=== PATIENT | male | born 1990 | race Caucasian/White ===

== ENCOUNTER 2017-02-16 21:31 | Emergency (ER) | payer OTHER ==
[2017-02-16 21:48] VITALS: BP 143/94; PULSE 60; RESP 20; TEMP 98.3
[2017-02-16] MEDS ORDERED: AMOXICILLIN 500MG STARTER PACK 3 CAP BTL PO STA (22:22)
--- NOTE | 2017-02-16 22:25 | ED ---
Pediatric HENT HPI - General Chief Complaint: ENT Stated Complaint: L ear pain Time Seen by Provider: 02/16/17 21:45 Source: patient, RN notes reviewed, old records reviewed Mode of arrival: ambulatory Limitations: no limitations - History of Present Illness Initial Comments: Pt is a 26 year old male with CC of left ear pain for one week. Patient reports that he felt a popping and fullness in the ear, denies taking motrin or tylenol. Patient reports decreased hearing in left ear, and states that his neck feels tender and swollen. Patient denies any sore throat, and denies known fever. - Related Data Previous Rx's Medication Instructions Recorded Amoxicillin 500 mg PO Q8H #21 capsule 02/16/17 Ciprofloxacin Ophth Soln [Ciloxan 5 drops LEFT EAR BID #1 bottle 02/16/17 0.3% Ophth Soln] Allergies Allergy/AdvReac Type Severity Reaction Status Date / Time No Known Allergies Allergy Verified 02/16/17 21:46 Review of Systems ROS Statement: Those systems with pertinent positive or pertinent negative responses have been documented in the HPI. ROS Other: All systems not noted in ROS Statement are negative. Constitutional: Denies: chills Eyes: Denies: eye pain, vision change ENT: Reports: ear pain, hearing loss. Denies: throat pain, dental pain, epistaxis Respiratory: Denies: cough, dyspnea Cardiovascular: Denies: chest pain, palpitations, dyspnea on exertion Endocrine: Denies: fatigue Gastrointestinal: Denies: abdominal pain, nausea Genitourinary: Denies: urgency, dysuria Musculoskeletal: Denies: back pain Skin: Denies: rash, lesions Neurological: Denies: headache, weakness Psychiatric: Denies: anxiety, depression Hematological/Lymphatic: Denies: easy bleeding Past Medical History Past Medical History: No Reported History History of Any Multi-Drug Resistant Organisms: None Reported Past Surgical History: No Surgical Hx Reported Past Psychological History: No Psychological Hx Reported Smoking Status: Current every day smoker Past Alcohol Use History: Occasional Past Drug Use History: None Reported General Exam - General Exam Comments Initial Comments: This is a 26 year old male, no distress. Limitations: no limitations General appearance: alert, in no apparent distress Head exam: Present: atraumatic, normocephalic, normal inspection Eye exam: Present: normal appearance, PERRL, EOMI. Absent: scleral icterus, conjunctival injection, periorbital swelling ENT exam: Present: normal oropharynx, mucous membranes moist, other (tender over left tragus). Absent: normal exam, TM's normal bilaterally (left TM erythema and effusion) Neck exam: Present: normal inspection. Absent: tenderness, meningismus, lymphadenopathy Respiratory exam: Present: normal lung sounds bilaterally. Absent: respiratory distress, wheezes, rales, rhonchi, stridor Cardiovascular Exam: Present: regular rate, normal rhythm, normal heart sounds. Absent: systolic murmur, diastolic murmur, rubs, gallop, clicks GI/Abdominal exam: Present: soft, normal bowel sounds. Absent: distended, tenderness, guarding, rebound, rigid Neurological exam: Present: alert, oriented X3, CN II-XII intact Psychiatric exam: Present: normal affect, normal mood Skin exam: Present: warm, dry, intact, normal color. Absent: rash Course Vital Signs 02/16/17 21:46 Temperature 98.3 F Pulse Rate 60 Respiratory 20 Rate Blood Pressure 143/94 O2 Sat by Pulse 100 Oximetry Medical Decision Making - Medical Decision Making Pt is a 26 year old male with CC of left ear pain for one week. Patient reports that he felt a popping and fullness in the ear, denies taking motrin or tylenol. Patient reports decreased hearing in left ear, and states that his neck feels tender and swollen. Patient has erythematous left TM with effusion, patient is tender over tragus. Patient placed on amoxil for otitis media. Discussed taking decongestant medication.Return parameters discussed. Disposition Clinical Impression: Left otitis media Disposition: HOME SELF-CARE Condition: Good Instructions: Otitis Media (ED) Additional Instructions: patient advised to brain picker [id number] decongestant medicine such as Tylenol Cold and sinus. Take antibiotic as prescribed. Also apply the antibiotic drops twice a day. Return to the emergency department if any alarming signs or symptoms occur. Prescriptions: Amoxicillin 500 mg PO Q8H #21 capsule Ciprofloxacin Ophth Soln [Ciloxan 0.3% Ophth Soln] 5 drops LEFT EAR BID #1 bottle Referrals: None,Stated [Primary Care Provider] - 1-2 days Time of Disposition: 22:23
--- NOTE | 2017-02-18 02:12 | CDI ---
Dear Fouzia Sarmiento PA-C: Please do addendum History of Present Illness, Physical Examination, and Medical Decision Making. Thank you, Shanta Escobar, [employer]. If you have any questions, please contact [facility] at [phone]. [facility]
== END 2017-02-16 22:30 | disposition home or self-care (01) ==
LOC: EC 21:31
DX: H66.92 Otitis media, unspecified, left ear (principal); F17.200 Nicotine dependence, unspecified, uncomplicated
CPT/HCPCS: 99283

== ENCOUNTER 2017-08-10 19:19 | Emergency (ER) | payer OTHER ==
[2017-08-10 19:49] VITALS: RESP 18
--- NOTE | 2017-08-10 20:15 | ED ---
URI HPI - General Chief Complaint: Upper Respiratory Infection Stated Complaint: flu/burn on arm Time Seen by Provider: 08/10/17 19:52 Source: patient, RN notes reviewed Mode of arrival: ambulatory Limitations: no limitations - History of Present Illness Initial Comments: This is a 26-year-old male who states he has a cough of green phlegm no overt fevers chills or sweats he does believe he may have contracted the fluids his son was diagnosed with a week ago. No earache sore throat or rhinorrhea at this time no other symptoms to report. MD Complaint: cough - Related Data Previous Rx's Medication Instructions Recorded Oseltamivir [Tamiflu] 75 mg PO Q12HR #14 cap 08/10/17 Allergies Allergy/AdvReac Type Severity Reaction Status Date / Time No Known Allergies Allergy Verified 08/10/17 20:34 Review of Systems ROS Statement: Those systems with pertinent positive or pertinent negative responses have been documented in the HPI. ROS Other: All systems not noted in ROS Statement are negative. Past Medical History Past Medical History: No Reported History History of Any Multi-Drug Resistant Organisms: None Reported Past Surgical History: No Surgical Hx Reported Past Psychological History: No Psychological Hx Reported Smoking Status: Current every day smoker Past Alcohol Use History: Occasional Past Drug Use History: None Reported General Exam - General Exam Comments Initial Comments: This is a well-developed well-nourished awake alert oriented 3 male Limitations: no limitations General appearance: alert, in no apparent distress Head exam: Present: atraumatic, normocephalic, normal inspection Eye exam: Present: normal appearance, PERRL, EOMI. Absent: scleral icterus, conjunctival injection, periorbital swelling ENT exam: Present: normal exam, mucous membranes moist, other (Boggy nasal mucosa) Neck exam: Present: normal inspection. Absent: tenderness, meningismus, lymphadenopathy Respiratory exam: Present: normal lung sounds bilaterally. Absent: respiratory distress, wheezes, rales, rhonchi, stridor Cardiovascular Exam: Present: regular rate, normal rhythm, normal heart sounds. Absent: systolic murmur, diastolic murmur, rubs, gallop, clicks GI/Abdominal exam: Present: soft, normal bowel sounds. Absent: distended, tenderness, guarding, rebound, rigid Extremities exam: Present: normal inspection, full ROM, normal capillary refill. Absent: tenderness, pedal edema, joint swelling, calf tenderness Back exam: Present: normal inspection Neurological exam: Present: alert, oriented X3, CN II-XII intact Psychiatric exam: Present: normal affect, normal mood Skin exam: Present: warm, dry, intact, normal color. Absent: rash Course Vital Signs 08/10/17 19:46 Temperature 99.1 F Pulse Rate 73 Respiratory 18 Rate Blood Pressure 127/70 O2 Sat by Pulse 99 Oximetry Medical Decision Making - Medical Decision Making I did discuss findings with patient family the patient is exposed to influenza he has what appears be the beginning symptoms so his initial test was negative he'll be placed on for prophylaxis. He does have a small infant at home. - Lab Data Lab Results 08/10/17 Range/Units 20:30 Influenza Type A RNA Not Detected (Not Detectd) Influenza Type B (PCR) Not Detected (Not Detectd) - Radiology Data Radiology results: report reviewed (I did review the imaging and reports no acute findings.), image reviewed Disposition Clinical Impression: Upper respiratory infection, Exposure to influenza Disposition: HOME SELF-CARE Condition: Good Instructions: Upper Respiratory Infection (ED), Influenza (ED) Prescriptions: Oseltamivir [Tamiflu] 75 mg PO Q12HR #14 cap Referrals: None,Stated [Primary Care Provider] - 1-2 days
--- NOTE | 2017-08-10 20:49 | XR ---
EXAMINATION: XR chest 2V DATE AND TIME: 08/10/2017 8:23 PM ORDERING PROVIDER: Christ Deutsch MD CLINICAL INDICATION: cough TECHNIQUE: PA and lateral COMPARISON: None. DESCRIPTION: The lungs are clear. The pleural spaces are negative. The cardiac silhouette is not enla rged. The mediastinal and pleural silhouettes are unremarkable. The skeletal structures are intact wi thout focal findings. The soft tissues are unremarkable. IMPRESSION: NO ACUTE PROCESS.
[2017-08-10] MEDS: OSELTAMIVIR 75 MG CAP PO STA ×2 (22:02→22:05)
[2017-08-10] MEDS ORDERED: OSELTAMIVIR 75 MG CAP PO STA (22:04)
[2017-08-10 22:10] VITALS: BP 118/60; PULSE 68; TEMP 98.4
== END 2017-08-10 22:08 | disposition home or self-care (01) ==
LOC: EC 19:19
DX: J06.9 Acute upper respiratory infection, unspecified (principal); Z20.828 Contact with and (suspected) exposure to other viral communicable diseases; F17.200 Nicotine dependence, unspecified, uncomplicated; Z53.8 Procedure and treatment not carried out for other reasons
CPT/HCPCS: 71046; 87502; 99283

== ENCOUNTER 2021-03-07 21:47 | Emergency (ER) | payer OTHER ==
[2021-03-07] MEDS ORDERED: ACET/COD 300 MG/30 MG STARTER PACK 6 TAB BTL PO STA (22:12)
[2021-03-07] MEDS ORDERED: AMOXIC-POT CLAV 875MG STARTER PACK 2 TAB BTL PO STA (22:12)
[2021-03-07] MEDS ORDERED: KETOROLAC 15 MG/ML 1 ML VIAL IM STA (22:13)
--- NOTE | 2021-03-07 22:14 | ED ---
General Adult HPI - General Chief complaint: Dental/Oral Stated complaint: Dental Pain Time Seen by Provider: 03/07/21 22:04 Source: patient Mode of arrival: ambulatory Limitations: no limitations - History of Present Illness Initial comments: 30-year-old male patient presents the emergency department today for evaluation of left upper until pain and facial swelling. Patient states symptoms started about 5 days ago, swelling started today. Denies any trismus or difficulty swallowing. Denies any fever or chills. Denies nausea or vomiting. States his been taken ibuprofen without relief. They have been calling around to multiple dentists and unable to get him in anywhere. They're calling daily to the [facility] for an appointment. - Related Data Previous Rx's Medication Instructions Recorded Oseltamivir [Tamiflu] 75 mg PO Q12HR #14 cap 08/10/17 Amoxic-Pot Clav 875-125Mg 1 tab PO Q12HR #20 tablet 03/07/21 [Augmentin 875-125] Ibuprofen [Motrin] 600 mg PO Q8HR PRN #30 tab 03/07/21 Allergies Allergy/AdvReac Type Severity Reaction Status Date / Time No Known Allergies Allergy Verified 03/07/21 21:59 Review of Systems ROS Statement: Those systems with pertinent positive or pertinent negative responses have been documented in the HPI. ROS Other: All systems not noted in ROS Statement are negative. Past Medical History Past Medical History: No Reported History History of Any Multi-Drug Resistant Organisms: None Reported Past Surgical History: No Surgical Hx Reported Past Psychological History: No Psychological Hx Reported Smoking Status: Current some day smoker Past Alcohol Use History: Occasional Past Drug Use History: None Reported General Exam Limitations: no limitations General appearance: alert, in no apparent distress, other (This is a well- developed, well-nourished adult male patient in no acute distress. Vital signs upon presentation are temperature 100.1F, pulse 89, respirations 19, blood pressure 135/75, pulse ox 97% on room air.) Eye exam: Present: normal appearance, PERRL, EOMI. Absent: scleral icterus, conjunctival injection, periorbital swelling ENT exam: Present: normal oropharynx, mucous membranes moist, other (There are multiple dental caries noted to the left upper dentition. There is no evidence for drainable abscess.) Cardiovascular Exam: Present: regular rate, normal rhythm, normal heart sounds. Absent: systolic murmur, diastolic murmur, rubs, gallop, clicks GI/Abdominal exam: Present: soft, normal bowel sounds. Absent: distended, tenderness, guarding, rebound, rigid Neurological exam: Present: alert, oriented X3, CN II-XII intact Psychiatric exam: Present: normal affect, normal mood Skin exam: Present: warm, dry, intact, normal color. Absent: rash Course Vital Signs 03/07/21 03/07/21 21:56 22:22 Temperature 100.1 F H 98 F Pulse Rate 89 79 Respiratory 19 18 Rate Blood Pressure 135/75 132/78 O2 Sat by Pulse 97 97 Oximetry Medical Decision Making - Medical Decision Making 30-year-old male patient presents to the emergency department today for evaluation of left upper dental pain and facial swelling. No evidence for drainable abscess on exam. He does have mildly elevated temperature 100.1. He was started on antibiotics here. Given pain medication. He was also given recommendation to call the [facility] as a do except a wide variety of insurances. He is instructed to continue colonic [facility] daily for an emergency appointment. Return parameters were discussed in detail. He verbalizes understanding and agrees with this plan. My attending is Dr. Chi. Disposition Clinical Impression: Dental abscess Disposition: HOME SELF-CARE Condition: Good Instructions (If sedation given, give patient instructions): Dental Abscess (ED) Additional Instructions: Take edications as directed. Complete antibiotic prescription in full. Follow-up with dentistry as soon as possible. Return to the emergency department for any new, worsening, or concerning symptoms. Prescriptions: Amoxic-Pot Clav 875-125Mg [Augmentin 875-125] 1 tab PO Q12HR #20 tablet Ibuprofen [Motrin] 600 mg PO Q8HR PRN #30 tab PRN Reason: Pain Is patient prescribed a controlled substance at d/c from ED?: No Referrals: None,Stated [Primary Care Provider] - 1-2 days Time of Disposition: 22:14
[2021-03-07 22:24] VITALS: BP 132/78; PULSE 79; RESP 18; TEMP 98
== END 2021-03-07 22:24 | disposition home or self-care (01) ==
LOC: EC 21:47
DX: K04.7 Periapical abscess without sinus (principal); F17.200 Nicotine dependence, unspecified, uncomplicated
CPT/HCPCS: 99282; J1885

== ENCOUNTER 2021-10-19 13:04 | Emergency (ER) | payer OTHER ==
[2021-10-19 13:13] VITALS: TEMP 98.5
[2021-10-19] MEDS ORDERED: PROPARACAINE 0.5% OPHTH DROPS 15 ML BTL LEFT EYE STA (13:16)
[2021-10-19] MEDS ORDERED: FLUORESCEIN STRIPS 1 MG STRIP LEFT EYE ONE (13:16)
[2021-10-19] MEDS ORDERED: TOBRAMYCIN 0.3% OPHTH DROPS 5 ML BTL LEFT EYE STA (13:32)
--- NOTE | 2021-10-19 13:34 | ED ---
Eye Problem HPI - General Chief complaint: Eye Problems Stated complaint: Left Eye pain Time Seen by Provider: 10/19/21 13:16 Source: patient, RN notes reviewed Mode of arrival: ambulatory Limitations: no limitations - History of Present Illness Initial comments: 31-year-old male presents emergency Department with chief complaint of left eye foreign body, left eye irritation. Patient states he felt like something has been his left eye for 1 week. He states he has no visual disturbance states it is sensitive to light, feels like something is in his left eye states that there is irritation, tearing of his eye. His tetanus is up-to-date patient offers no complaints. - Related Data Previous Rx's Medication Instructions Recorded Oseltamivir [Tamiflu] 75 mg PO Q12HR #14 cap 08/10/17 Amoxic-Pot Clav 875-125Mg 1 tab PO Q12HR #20 tablet 03/07/21 [Augmentin 875-125] Ibuprofen [Motrin] 600 mg PO Q8HR PRN #30 tab 03/07/21 Allergies Allergy/AdvReac Type Severity Reaction Status Date / Time No Known Allergies Allergy Verified 10/19/21 13:13 Review of Systems ROS Statement: Those systems with pertinent positive or pertinent negative responses have been documented in the HPI. ROS Other: All systems not noted in ROS Statement are negative. Past Medical History Past Medical History: No Reported History History of Any Multi-Drug Resistant Organisms: None Reported Past Surgical History: No Surgical Hx Reported Past Psychological History: No Psychological Hx Reported Smoking Status: Current some day smoker Past Alcohol Use History: Occasional Past Drug Use History: None Reported General Exam Limitations: no limitations General appearance: alert, in no apparent distress Head exam: Present: atraumatic, normocephalic, normal inspection Eye exam: Present: PERRL, EOMI, conjunctival injection (Left), other (Foreign- body central region left eye, patient has fluorescein uptake with Wood lamp, patient for relief of symptoms after proparacaine drops). Absent: normal appearance, scleral icterus, periorbital swelling ENT exam: Present: normal exam, normal oropharynx, mucous membranes moist, TM's normal bilaterally Neck exam: Present: normal inspection. Absent: tenderness, meningismus, lymphadenopathy Respiratory exam: Present: normal lung sounds bilaterally. Absent: respiratory distress, wheezes, rales, rhonchi, stridor Cardiovascular Exam: Present: regular rate, normal rhythm, normal heart sounds. Absent: systolic murmur, diastolic murmur, rubs, gallop, clicks Course Vital Signs 10/19/21 13:10 Temperature 98.5 F Pulse Rate 80 Respiratory 20 Rate Blood Pressure 118/67 O2 Sat by Pulse 99 Oximetry Procedures - Forgein Body Removal Eye Site: Left Anesthetic Used: Proparacaine Eye Exam Technique: Zepeda Lamp Foreign Body Suspected: Other Forgein Body Removal Technique: Cotton Swab Remaining Debris: No Patient Tolerated: no complications Medical Decision Making - Medical Decision Making Foreign body was removed from left eye, there is a corneal defect patient was placed on Tobrex eyedrops patient will follow-up with on-call ophthalmology return parameters were discussed. Disposition Clinical Impression: Foreign body in cornea, left eye, initial encounter Disposition: HOME SELF-CARE Condition: Stable Instructions (If sedation given, give patient instructions): Corneal Abrasion (ED), Eye Foreign Body (ED) Additional Instructions: Use Tobrex eyedrops 1 drop every 4 hours for 5 days.Please return to the Emergency Department if symptoms worsen or any other concerns. Is patient prescribed a controlled substance at d/c from ED?: No Referrals: None,Stated [Primary Care Provider] - 1-2 days Franck Nobles MD [STAFF PHYSICIAN] - 1-2 days Time of Disposition: 13:34
[2021-10-19 13:51] VITALS: BP 113/74; PULSE 73; RESP 18
== END 2021-10-19 14:10 | disposition home or self-care (01) ==
LOC: EC 13:04
DX: T15.02XA Foreign body in cornea, left eye, initial encounter (principal); F17.200 Nicotine dependence, unspecified, uncomplicated
CPT/HCPCS: 65220; 99283

== ENCOUNTER 2022-01-25 12:17 | Emergency (ER) | payer OTHER ==
[2022-01-25 12:36] VITALS: BP 120/65; PULSE 64; RESP 20; TEMP 98
--- NOTE | 2022-01-25 12:55 | ED ---
General Adult HPI - General Chief complaint: Dental/Oral Stated complaint: dental pain Time Seen by Provider: 01/25/22 12:37 Source: patient Mode of arrival: ambulatory Limitations: no limitations - History of Present Illness Initial comments: Dictation was produced using [employer] dictation software. please excuse any grammatical, word or spelling errors. Chief Complaint: 31-year-old male presents to the emergency department for dental pain History of Present Illness: Patient is a 31-year-old male with no significant comorbidities. Presents emergency Department with dental pain. Patient states that #17 hurts. It's been hurting for 7 days. Patient is a history of poor dentition and dental extractions in the past. Denies any fever or facial pain. Patient had his significant other called multiple dental offices and appointments have been delayed for up to 3 weeks. Patient spent on antibiotics in the past for dental pain. The ROS documented in this emergency department record has been reviewed and confirmed by me. Those systems with pertinent positive or negative responses have been documented in the HPI. All other systems are other negative and/or noncontributory. PHYSICAL EXAM: General Impression: Alert and oriented x3, not in acute distress HEENT: Normocephalic atraumatic, extra-ocular movements intact, pupils equal and reactive to light bilaterally, mucous membranes moist. Oral exam: Poor dentition, no drainable abscess in the lower left mandibular gingiva Cardiovascular: Heart regular rate and rhythm Chest: Able to complete full sentences, no retractions, no tachypnea Musculoskeletal: Pulses present and equal in all extremities, no peripheral edema Motor: no focal deficits noted Neurological: CN II-XII grossly intact, no focal motor or sensory deficits noted Skin: Intact with no visualized rashes Psych: Normal affect and mood ED course: 31-year-old male presents to the emergency department for dental pain. Vital signs upon arrival are within acceptable limits. Patient in no acute distress. Patient given antibiotics. Advised to follow up with Dentist. Patient given prescription for antibiotics and analgesics. - Related Data Previous Rx's Medication Instructions Recorded Oseltamivir [Tamiflu] 75 mg PO Q12HR #14 cap 08/10/17 Amoxic-Pot Clav 875-125Mg 1 tab PO Q12HR #20 tablet 03/07/21 [Augmentin 875-125] Ibuprofen [Motrin] 600 mg PO Q8HR PRN #30 tab 03/07/21 Amoxic-Pot Clav 875-125Mg 1 tab PO BID 21 Days #42 tab 01/25/22 [Augmentin 875-125] HYDROcodone/APAP 5-325MG [Riner 1 tab PO Q6HR PRN 3 Days #12 tab 01/25/22 5-325] Allergies Allergy/AdvReac Type Severity Reaction Status Date / Time No Known Allergies Allergy Verified 01/25/22 12:36 Review of Systems ROS Statement: Those systems with pertinent positive or pertinent negative responses have been documented in the HPI. ROS Other: All systems not noted in ROS Statement are negative. Past Medical History Past Medical History: No Reported History History of Any Multi-Drug Resistant Organisms: None Reported Past Surgical History: No Surgical Hx Reported Past Psychological History: No Psychological Hx Reported Smoking Status: Current every day smoker Past Alcohol Use History: Occasional Past Drug Use History: Marijuana General Exam Limitations: no limitations Course Vital Signs 01/25/22 12:35 Temperature 98 F Pulse Rate 64 Respiratory 20 Rate Blood Pressure 120/65 O2 Sat by Pulse 99 Oximetry Disposition Clinical Impression: Pain, dental Disposition: HOME SELF-CARE Condition: Fair Instructions (If sedation given, give patient instructions): Toothache (ED) Prescriptions: Amoxic-Pot Clav 875-125Mg [Augmentin 875-125] 1 tab PO BID 21 Days #42 tab HYDROcodone/APAP 5-325MG [Riner 5-325] 1 tab PO Q6HR PRN 3 Days #12 tab PRN Reason: Severe Pain Is patient prescribed a controlled substance at d/c from ED?: Yes If prescribed controlled substance>3 days was MAPS reviewed?: Prescribed <3 Days Referrals: None,Stated [Primary Care Provider] - 1-2 days Time of Disposition: 12:55
== END 2022-01-25 13:47 | disposition home or self-care (01) ==
LOC: EC 12:17
DX: K08.89 Other specified disorders of teeth and supporting structures (principal); F17.200 Nicotine dependence, unspecified, uncomplicated
CPT/HCPCS: 99282

== ENCOUNTER 2024-04-21 08:44 | Emergency (ER) | payer SELFPAY ==
[2024-04-21] MEDS: FLUORESCEIN STRIPS 1 MG STRIP RIGHT EYE ONE (09:22)
[2024-04-21] MEDS: PROPARACAINE 0.5% OPHTH DROPS 15 ML BTL RIGHT EYE STA (09:22)
--- NOTE | 2024-04-21 09:45 | ED ---
ENT HPI - General Chief complaint: ENT Stated complaint: object in rt eye Time Seen by Provider: 04/21/24 08:59 Source: patient, RN notes reviewed Mode of arrival: ambulatory Limitations: no limitations - History of Present Illness Initial comments: 33-year-old male presents to the emergency department with chief complaint of foreign body in right eye. He states that he was working on a truck and a piece of rust fell off into his eye. He reports pain and tearing but denies vision changes or floaters. Denies other trauma to face or eye. States that his last tetanus shot was 7 years ago. Denies other complaints - Related Data Previous Rx's Medication Instructions Recorded Oseltamivir [Tamiflu] 75 mg PO Q12HR #14 cap 08/10/17 Amoxic-Pot Clav 875-125Mg 1 tab PO Q12HR #20 tablet 03/07/21 [Augmentin 875-125] Ibuprofen [Motrin] 600 mg PO Q8HR PRN #30 tab 03/07/21 Amoxic-Pot Clav 875-125Mg 1 tab PO BID 21 Days #42 tab 01/25/22 [Augmentin 875-125] HYDROcodone/APAP 5-325MG [[place] 1 tab PO Q6HR PRN 3 Days #12 tab 01/25/22 5-325] Allergies Allergy/AdvReac Type Severity Reaction Status Date / Time No Known Allergies Allergy Verified 04/21/24 09:14 Review of Systems ROS Statement: Those systems with pertinent positive or pertinent negative responses have been documented in the HPI. ROS Other: All systems not noted in ROS Statement are negative. Past Medical History Past Medical History: No Reported History History of Any Multi-Drug Resistant Organisms: None Reported Past Surgical History: No Surgical Hx Reported Past Psychological History: No Psychological Hx Reported Smoking Status: Current every day smoker Past Alcohol Use History: Occasional Past Drug Use History: Marijuana General Exam Limitations: no limitations General appearance: alert, in no apparent distress Head exam: Present: atraumatic, normocephalic, normal inspection Eye exam: Present: PERRL, EOMI. Absent: normal appearance (Foreign body 4 o'clock position), scleral icterus, conjunctival injection, periorbital swelling Expanded Pupils: Regular, Round: Bilateral, Reactive: Bilateral Sclera/Conjunctival: Injection: Right, Foreign Body: Right (metal with rust 4 o'clock position) Visual acuity (R) = 20/: 20 Visual acuity (L) = 20/: 20 With correction: No ENT exam: Present: normal exam, mucous membranes moist Neck exam: Present: normal inspection. Absent: tenderness, meningismus, lymphadenopathy Respiratory exam: Present: normal lung sounds bilaterally. Absent: respiratory distress, wheezes, rales, rhonchi, stridor Cardiovascular Exam: Present: regular rate, normal rhythm, normal heart sounds. Absent: systolic murmur, diastolic murmur, rubs, gallop, clicks GI/Abdominal exam: Present: soft, normal bowel sounds. Absent: distended, tenderness, guarding, rebound, rigid Extremities exam: Present: normal inspection, full ROM, normal capillary refill. Absent: tenderness, pedal edema, joint swelling, calf tenderness Back exam: Present: normal inspection Neurological exam: Present: alert, oriented X3, CN II-XII intact Psychiatric exam: Present: normal affect, normal mood Skin exam: Present: warm, dry, intact, normal color. Absent: rash Course Vital Signs 04/21/24 04/21/24 09:12 09:56 Temperature 98.2 F 98.1 F Pulse Rate 67 68 Respiratory 20 18 Rate Blood Pressure 116/75 114/81 O2 Sat by Pulse 99 99 Oximetry Procedures - Forgein Body Removal Eye Site: Right Anesthetic Used: Proparacaine Eye Exam Technique: Zepeda Lamp, Fluorescein Foreign Body Suspected: Metal Forgein Body Removal Technique: Cotton Swab, Irrigation, [place] Remaining Debris: No Patient Tolerated: no complications Medical Decision Making - Medical Decision Making Was pt. sent in by a medical professional or institution (MARYANNE Armendariz, EXTENSION CLERK, urgent care, hospital, or residential...) When possible be specific @ -No Did you speak to anyone other than the patient for history (EMS, parent, family, police, friend...)? What history was obtained from this source @ -No Did you review nursing and triage notes (agree or disagree)? Why? @ -I reviewed and agree with nursing and triage notes Were old charts reviewed (outside hosp., previous admission, EMS record, old EKG, old radiological studies, urgent care reports/EKG's, residential records)? Report findings @ -No old charts were reviewed Differential Diagnosis (chest pain, altered mental status, abdominal pain women, abdominal pain men, vaginal bleeding, weakness, fever, dyspnea, syncope, headache, dizziness, GI bleed, back pain, seizure, CVA, palpatations, mental health, musculoskeletal)? @ -Corneal foreign body, corneal abrasion, conjunctivitis EKG interpreted by me (3pts min.). @ -None X-rays interpreted by me (1pt min.). @ -None done CT interpreted by me (1pt min.). @ -None done U/S interpreted by me (1pt. min.). @ -None done What testing was considered but not performed or refused? (CT, X-rays, U/S, labs)? Why? @ -None What meds were considered but not given or refused? Why? @ -None Did you discuss the management of the patient with other professionals (professionals i.e. , PA, EXTENSION CLERK, lab, RT, psych nurse, social services designee, clinical team lead, teacher, global safety officer, case management specialist)? Give summary @ -No Was smoking cessation discussed for >3mins.? @ -No Was critical care preformed (if so, how long)? @ -No Were there social determinants of health that impacted care today? How? (Homelessness, low income, unemployed, alcoholism, drug addiction, transportation, low edu. Level, literacy, decrease access to med. care, usp, rehab)? @ -No Was there de-escalation of care discussed even if they declined (Discuss DNR or withdrawal of care, Hospice)? DNR status @ -No What co-morbidities impacted this encounter? (DM, HTN, Smoking, COPD, CAD, Cancer, CVA, ARF, Chemo, Hep., AIDS, mental health diagnosis, sleep apnea, morbid obesity)? @ -None Was patient admitted / discharged? Hospital course, mention meds given and route, prescriptions, significant lab abnormalities, going to OR and other pertinent info. @ -[Does charge corneal foreign body was removed with no complication rust ring removed patient's tetanus updated discharged on Tobrex eyedrops and follow-up with ophthalmology Undiagnosed new problem with uncertain prognosis? @ -No Drug Therapy requiring intensive monitoring for toxicity (Heparin, Nitro, Insulin, Cardizem)? @ -No Were any procedures done? @ -No Diagnosis/symptom? @ -Corneal foreign body Acute, or Chronic, or Acute on Chronic? @ -Acute Uncomplicated (without systemic symptoms) or Complicated (systemic symptoms)? @ -Uncomplicated Side effects of treatment? @ -No Exacerbation, Progression, or Severe Exacerbation? @ -No Poses a threat to life or bodily function? How? (Chest pain, [place], [place], pneumonia, PE, COPD, DKA, ARF, appy, cholecystitis, CVA, Diverticulitis, Homicidal, Suicidal, threat to staff... and all critical care pts) @ -No Disposition Clinical Impression: Corneal foreign body Disposition: HOME SELF-CARE Condition: Stable Instructions (If sedation given, give patient instructions): Eye Foreign Body (ED) Additional Instructions: Use Tobrex eyedrops 1 drop every 4 hours for 5 days please return to the Emergency Department if symptoms worsen or any other concerns. Is patient prescribed a controlled substance at d/c from ED?: No Referrals: None,Stated [Primary Care Provider] - 1-2 days Franck Nobles MD [STAFF PHYSICIAN] - 1-2 days Time of Disposition: 09:45
[2024-04-21] MEDS: DIPH,PERTUS(ACELL)TETVAC-LF 0.5 ML VIAL IM ONE (09:53)
[2024-04-21] MEDS: TOBRAMYCIN 0.3% OPHTH DROPS 5 ML BTL RIGHT EYE STA (09:53)
[2024-04-21 09:59] VITALS: BP 114/81; PULSE 68; RESP 18; TEMP 98.1
== END 2024-04-21 09:59 | disposition home or self-care (01) ==
LOC: EC 08:44
DX: T15.01XA Foreign body in cornea, right eye, initial encounter (principal); F17.200 Nicotine dependence, unspecified, uncomplicated; Z23 Encounter for immunization; W44.9XXA Unspecified foreign body entering into or through a natural orifice, initial encounter
CPT/HCPCS: 65220; 90471; 90715; 99283